=== PATIENT | male | born 1980 | race Native Hawaiian/Other Pacific Islander ===

== ENCOUNTER 2019-06-03 23:27 | Emergency (ER) | payer OTHER ==
[~2019-06-03] VITALS: Ht 175.3 cm; Wt 73.5 kg
[2019-06-04 00:12] LABS: PLATELET COUNT 270 K/uL (142-355)
[2019-06-04 00:20] LABS: POTASSIUM 3.7 mmol/L (3.6-5.2)
[2019-06-04 00:55] VITALS: BP 150/98; TEMP 97.9
== END 2019-06-04 00:55 | disposition home or self-care (01) ==
LOC: ED 23:27
PROVIDERS: Emergency Medicine
DX: S00.93XA Contusion of unspecified part of head, initial encounter (principal); S60.00XA Contusion of unspecified finger without damage to nail, initial encounter; F15.10 Other stimulant abuse, uncomplicated; E16.2 Hypoglycemia, unspecified; E86.0 Dehydration; R00.0 Tachycardia, unspecified
CPT/HCPCS: 36415; 80053; 80307; 81000; 85027; 93005; 99283